=== PATIENT | female | born 2005 | race Two or more races ===

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

== ENCOUNTER 2025-01-16 11:31 | Emergency (ER) | payer MEDICAID, OTHER ==
[2025-01-16 12:10] LABS: BASOPHILS ABSOLUTE AUTO 0.1 K/mm3 (0.0-0.3); BASOPHILS PERCENT AUTO 0.3 % (0.0-1.0); EOSINOPHILS PERCENT AUTO 0.1 % (0.0-5.0); HEMATOCRIT 39.7 % (37.0-47.0); HEMOGLOBIN 13.6 gm/dl (12.0-16.0); IMMATURE GRAN ABSOLUTE AUTO 0.09 K/mm3 (0.00-0.05); IMMATURE GRAN PERCENT AUTO 0.4 % (0.0-0.4); LYMPHOCYTES ABSOLUTE AUTO 1.7 K/mm3 (2.0-8.8); LYMPHOCYTES PERCENT AUTO 7.5 % (50.0-65.0); MEAN CORPUSCULAR HEMOGLOBIN 30.6 pg (28.0-32.0); MEAN CORPUSCULAR HGB CONC 34.3 g/dl (32.0-36.0); MEAN CORPUSCULAR VOLUME 89.2 fl (83.0-99.0); MEAN PLATELET VOLUME 9.4 fl (9.4-12.3); MONOCYTES ABSOLUTE AUTO 1.2 K/mm3 (0.1-1.4); MONOCYTES PERCENT AUTO 5.1 % (2.0-10.0); NEUTROPHILS ABSOLUTE AUTO 19.7 K/mm3 (1.5-8.5); NEUTROPHILS PERCENT AUTO 86.6 % (35.0-45.0); PLATELET COUNT,PLT 301 K/mm3 (150-400); RED BLOOD CELL COUNT 4.45 M/mm3 (4.10-5.30); WHITE BLOOD CELL COUNT,WBC 22.68 K/mm3 (4.5-13.5)
[2025-01-16] MEDS: Lactated Ringers 1,000 ML IV SCH (12:28)
[2025-01-16] MEDS: Ketorolac 30 MG/ML SDV IVPUSH ONE (12:30)
[2025-01-16 12:32] LABS: INR 1.12; PROTHROMBIN TIME 11.8 SECONDS (9.7-12.0)
[2025-01-16 12:33] LABS: ALANINE AMINOTRANSFERASE,ALT 17 U/L (14-59); ALBUMIN 3.8 g/dl (3.4-5.0); ALKALINE PHOSPHATASE 111 U/L (46-116); ANION GAP 12.8 (5-15); ASPARTATE AMNIOTRANSFERASE,AST 11 U/L (15-37); BLOOD UREA NITROGEN,BUN 12 mg/dL (7-18); BUN/CREATININE RATIO 13.3 (14-18); C-REACTIVE PROTEIN 7.76 mg/dL (<0.30); CALCIUM 9.2 mg/dL (8.5-10.1); CARBON DIOXIDE,CO2 25 mEq/L (21-32); CHLORIDE,CL 102 mEq/L (98-107); CREATININE 0.9 mg/dL (0.55-1.02); D-DIMER QUANTITATIVE 0.22 mg/L (0.19-0.50); EST CRCL DRUG DOSING (CG) 72.22 mL/min; ESTIMATED GFR 94 mL/min (>60); GLUCOSE RANDOM 117 mg/dL (70-99); MAGNESIUM 1.9 mg/dL (1.8-2.4); POTASSIUM,K 3.8 mEq/L (3.5-5.1); PROTEIN TOTAL,TP 7.5 g/dl (6.4-8.2); SODIUM,NA 136 mEq/L (136-145)
[2025-01-16 12:34] LABS: PTT,PARTIAL THROMBOPLSTIN TIME 28.5 SECONDS (21.7-31.4)
[2025-01-16 12:36] LABS: TROPONIN I HIGH SENSITIVITY < 4 pg/mL (<=51)
[2025-01-16 14:06] LABS: APPEARANCE,URINE CLEAR (Clear); BILIRUBIN,URINE NEGATIVE (Negative); COLOR,URINE YELLOW (Yellow); GLUCOSE,URINE NEGATIVE (Negative); KETONES,URINE TRACE (Negative); LEUKOCYTE ESTERASE,URINE 1+ (Negative); NITRITE,URINE NEGATIVE (Negative); OCCULT BLOOD,URINE NEGATIVE (Negative); PROTEIN,URINE NEGATIVE (Negative)
[2025-01-16 14:38] LABS: BACTERIA,URINE FEW /hpf (FEW); EPITHELIAL CELLS,URINE 0-5 /hpf (0-5); MUCUS,URINE FEW /hpf (FEW); RBC,URINE 0-5 /hpf (0-5); WBC,URINE 0-5 /hpf (0-5)
[2025-01-16] MEDS: Sulfamethoxazole/Trimethoprim 800-160 MG Tab PO ONE (16:47)
[2025-01-16 16:56] VITALS: BP 123/75; PULSE 78
== END 2025-01-16 16:50 | disposition home or self-care (01) ==
LOC: JD.ED 11:31
DX: R07.2 Precordial pain (principal); N30.00 Acute cystitis without hematuria; R51.9 Headache, unspecified; Z88.0 Allergy status to penicillin; Z88.8 Allergy status to other drugs, medicaments and biological substances; Z79.899 Other long term (current) drug therapy; Z86.16 Personal history of COVID-19
CPT/HCPCS: 36415; 71045; 71250; 80053; 81001; 81025; 83735; 83880; 84484; 85025; 85379; 85610; 85730; 86140; 87086; 93005; 96361; 96374; 99285; A9270; J1885; J7120; 93010; 99284

== ENCOUNTER 2025-05-23 02:22 | Emergency (ER) | payer SELFPAY ==
[2025-05-23 02:36] VITALS: BP 138/81; PULSE 82
[2025-05-23] MEDS: Ketorolac 30 MG/ML SDV IM ONE (03:48)
== END 2025-05-23 04:28 | disposition home or self-care (01) ==
LOC: JD.ED 02:22
DX: M79.622 Pain in left upper arm (principal); Z79.899 Other long term (current) drug therapy; Z88.0 Allergy status to penicillin; Z86.16 Personal history of COVID-19
CPT/HCPCS: 73060; 73090; 96372; 99284; J1885

== ENCOUNTER 2025-08-19 00:01 | Emergency (ER) | payer SELFPAY ==
[2025-08-19 00:42] LABS: APPEARANCE,URINE CLEAR (Clear); BASOPHILS ABSOLUTE AUTO 0.1 K/mm3 (0.0-0.3); BASOPHILS PERCENT AUTO 0.4 % (0.0-1.0); EOSINOPHILS ABSOLUTE AUTO 0.1 K/mm3 (0.0-0.7); EOSINOPHILS PERCENT AUTO 0.4 % (0.0-5.0); GLUCOSE,URINE NEGATIVE (Negative); IMMATURE GRAN ABSOLUTE AUTO 0.05 K/mm3 (0.00-0.05); IMMATURE GRAN PERCENT AUTO 0.4 % (0.0-0.4); LYMPHOCYTES ABSOLUTE AUTO 2.8 K/mm3 (2.0-8.8); LYMPHOCYTES PERCENT AUTO 24.6 % (50.0-65.0); MEAN PLATELET VOLUME 10.0 fl (9.4-12.3); MONOCYTES ABSOLUTE AUTO 0.7 K/mm3 (0.1-1.4); MONOCYTES PERCENT AUTO 6.2 % (2.0-10.0); NEUTROPHILS ABSOLUTE AUTO 7.6 K/mm3 (1.5-8.5); NEUTROPHILS PERCENT AUTO 68.0 % (35.0-45.0); NRBC ABSOLUTE 0.00 (0.00-0.03); NRBC PERCENT 0.0 % (0.0-0.2); OCCULT BLOOD,URINE NEGATIVE (Negative); PLATELET COUNT,PLT 279 K/mm3 (150-400); RED BLOOD CELL COUNT 4.33 M/mm3 (4.10-5.30); WHITE BLOOD CELL COUNT,WBC 11.20 K/mm3 (4.5-13.5)
[2025-08-19 00:58] LABS: EPITHELIAL CELLS,URINE 0-5 /hpf (0-5)
[2025-08-19 01:07] LABS: A/G RATIO 0.8 (1-2); ALANINE AMINOTRANSFERASE,ALT 27.0 U/L (14-59); ASPARTATE AMNIOTRANSFERASE,AST 16.0 U/L (15-37); BILIRUBIN TOTAL 0.3 mg/dL (0.2-1.0); BLOOD UREA NITROGEN,BUN 7.0 mg/dL (7-18); CARBON DIOXIDE,CO2 27.0 mEq/L (21-32); CHLORIDE,CL 105.0 mEq/L (98-107); CREATININE 0.6 mg/dL (0.55-1.02); EST CRCL DRUG DOSING (CG) 108.33 mL/min; ESTIMATED GFR 133.0 mL/min (>60); GLUCOSE RANDOM 78.0 mg/dL (70-99); POTASSIUM,K 3.8 mEq/L (3.5-5.1); PROTEIN TOTAL,TP 7.1 g/dl (6.4-8.2); SODIUM,NA 140.0 mEq/L (136-145); TROPONIN I HIGH SENSITIVITY 4.0 pg/mL (<=51)
[2025-08-19 02:49] VITALS: BP 108/67; PULSE 77
== END 2025-08-19 02:47 | disposition home or self-care (01) ==
LOC: JD.ED 00:01
DX: O99.891 Other specified diseases and conditions complicating pregnancy (principal); R10.30 Lower abdominal pain, unspecified; Z3A.12 12 weeks gestation of pregnancy; Z88.0 Allergy status to penicillin; Z88.8 Allergy status to other drugs, medicaments and biological substances; Z79.899 Other long term (current) drug therapy; Z86.16 Personal history of COVID-19
CPT/HCPCS: 36415; 76801; 76801-26; 80053; 81001; 83690; 84484; 85025; 93005; 93010; 99283; 99285